=== PATIENT | female | born 1950 | race Caucasian/White ===

== ENCOUNTER 2018-08-16 19:19 | Emergency (ER) | payer MEDICARE, OTHER ==
--- NOTE | 2018-08-16 21:28 | ER Document Report ---
ED Medical Screen (RME) - General Chief Complaint: Foot Pain Stated Complaint: FOOT PAIN Time Seen by Provider: 08/16/18 21:24 Primary Care Provider: AMA GARVEY MD [Primary Care Provider] - Follow up as needed Mode of Arrival: Ambulatory Information source: Patient Notes: 68-year-old female presented to ED for complaint of pain in her left foot times a week swelling started this weekend redness started yesterday and now she has all 3 were discontinued. She states she has a history of high blood pressure and anxiety and cosmetic surgeries no other medical history. Patient is alert oriented respirations regular and unlabored speaking in full sentences walks with a even steady gait. She does have palpable pedal pulses to both feet with mild erythema and edema and tenderness to the top of the left foot. Patient does speak in full sentences. She states she drinks wine about daily does not smoke does does not use recreational drugs. I have greeted and performed a rapid initial assessment of this patient. A comprehensive ED assessment and evaluation of the patient, analysis of test results and completion of medical decision making process will be conducted by an additional ED providers. TRAVEL OUTSIDE OF THE [place] IN LAST 30 DAYS: No - Related Data Allergies/Adverse Reactions: No Known Drug Allergies Allergy (Verified 08/16/18 19:24) Past Medical History - Social History Chew tobacco use (# tins/day): No Frequency of alcohol use: Social - Past Medical History Cardiac Medical History: Reports: Hx Hypertension Renal/ Medical History: Denies: Hx Peritoneal Dialysis Physical Exam - Vital signs Vitals: Temp Pulse Resp BP Pulse Ox 98.7 F 85 20 147/93 H 100 08/16/18 19:45 08/16/18 19:45 08/16/18 19:45 08/16/18 19:45 08/16/18 19:45 Course - Vital Signs Vital signs: Temp Pulse Resp BP Pulse Ox 98.7 F 85 20 147/93 H 100 08/16/18 19:45 08/16/18 19:45 08/16/18 19:45 08/16/18 19:45 08/16/18 19:45 Doctor's Discharge - Discharge Referrals: AMA GARVEY MD [Primary Care Provider] - Follow up as needed
[2018-08-16 22:03] LABS: ABSOLUTE EOSINOPHILS # (AUTO) 0.1 10^3/uL (0.0-0.6); ABSOLUTE LYMPHOCYTES (AUTO) 1.5 10^3/uL (0.5-4.7); ABSOLUTE MONOCYTES (AUTO) 0.7 10^3/uL (0.1-1.4); ABSOLUTE NEUT (AUTO) 4.8 10^3/uL (1.7-8.2); BASOPHILS % (AUTO) 0.4 % (0-2); EOSINOPHILS % (AUTO) 1.3 % (0-6); HEMATOCRIT 38.3 % (36.0-47.0); HEMOGLOBIN 13.2 g/dL (12.0-15.5); LYMPHOCYTES % (AUTO) 20.4 % (13-45); MEAN CORPUSCULAR HEMOGLOBIN 31.5 pg (27.0-33.4); MEAN CORPUSCULAR HGB CONC 34.4 g/dL (32.0-36.0); MEAN CORPUSCULAR VOLUME 91 fl (80-97); MONOCYTES % (AUTO) 10.2 % (3-13); PLATELET COUNT 324 10^3/uL (150-450); RED BLOOD COUNT 4.19 10^6/uL (3.72-5.28); RED CELL DISTRIBUTION WIDTH 13.6 % (11.5-14.0); SEGMENTED NEUTROPHILS % (AUTO) 67.7 % (42-78); TOTAL CELLS COUNTED % (AUTO) 100 %; WHITE BLOOD COUNT 7.1 10^3/uL (4.0-10.5)
[2018-08-16 22:14] LABS: ALANINE AMINOTRANSFERASE 26 U/L (9-52); ALBUMIN 4.8 g/dL (3.5-5.0); ALKALINE PHOSPHATASE 86 U/L (38-126); ANION GAP 11 (5-19); ASPARTATE AMINO TRANSFERASE 22 U/L (14-36); BILIRUBIN,DIRECT 0.1 mg/dL (0.0-0.4); BILIRUBIN,TOTAL 0.6 mg/dL (0.2-1.3); BLOOD UREA NITROGEN 17 mg/dL (7-20); CALCIUM 9.8 mg/dL (8.4-10.2); CARBON DIOXIDE 28 mmol/L (22-30); CHLORIDE 101 mmol/L (98-107); GLUCOSE 112 mg/dL (75-110); POTASSIUM 3.8 mmol/L (3.6-5.0); URIC ACID 4.6 mg/dL (2.5-7.5)
--- NOTE | 2018-08-16 22:19 | RADIOLOGY REPORT (SQ) ---
3 VIEWS OF THE LEFT LOWER HISTORY: Joint pain. COMPARISON: None. FINDINGS: There is a nondisplaced fracture of the third metatarsal. No dislocation is seen. Mild soft tissue swelling is present. There are severe degenerative changes of the first and second MTP joints with remodeling, osteophytosis, and joint space loss. Remaining joint spaces are preserved. IMPRESSION: 1. Mildly displaced fracture of the third metatarsal. 2. Marked degenerative changes of the first and second MTP joints.
[2018-08-17] MEDS ORDERED: HYDROCODONE/ACETAMINOPHEN 5-325 MG (6 TAB/ER DISP) PO PRN (03:37)
--- NOTE | 2018-08-17 03:43 | ER Document Report ---
ED Extremity Problem, Lower - General Chief Complaint: Foot Pain Stated Complaint: FOOT PAIN Time Seen by Provider: 08/16/18 21:24 Primary Care Provider: AMA GARVEY MD [NO LOCAL MD] - Follow up as needed Mode of Arrival: Ambulatory Notes: 68-year-old female to emergency department for evaluation of left foot pain. Denies any trauma. Does not know what has noticed that her left foot is extremely painful, swollen and red. No fever, chills, sweats. No shortness of breath. No calf pain. Patient does have osteoporosis and arthritis. TRAVEL OUTSIDE OF THE [place] IN LAST 30 DAYS: No - HPI Patient complains to provider of: Pain, Swelling Location: Foot Occurred: Last week Where: Home - Related Data Allergies/Adverse Reactions: No Known Drug Allergies Allergy (Verified 08/16/18 19:24) Past Medical History - General Information source: Patient - Social History Smoking Status: Never Smoker Chew tobacco use (# tins/day): No Frequency of alcohol use: Social Drug Abuse: None Lives with: Family Family History: Reviewed & Not Pertinent Patient has suicidal ideation: No Patient has homicidal ideation: No - Past Medical History Cardiac Medical History: Reports: Hx Hypertension Renal/ Medical History: Denies: Hx Peritoneal Dialysis Review of Systems - Review of Systems Constitutional: denies: Fever, Malaise, Weakness EENT: denies: Difficulty swallowing, Throat swelling Cardiovascular: denies: Chest pain, Palpitations, Heart racing Respiratory: denies: Cough, Hurts to breathe, Short of breath, Wheezing Musculoskeletal: See HPI, Other - Foot pain, foot swelling, redness Skin: Other - Redness to the left foot. denies: Dryness, Lumps, Rash Hematologic/Lymphatic: denies: Anemia, Blood clots, Easy bleeding, Easy bruising Physical Exam - Vital signs Vitals: Temp Pulse Resp BP Pulse Ox 98.7 F 85 20 147/93 H 100 08/16/18 19:45 08/16/18 19:45 08/16/18 19:45 08/16/18 19:45 08/16/18 19:45 Interpretation: Normal - General General appearance: Appears well, Alert - Respiratory Respiratory status: No respiratory distress Chest status: Nontender Breath sounds: Normal Chest palpation: Normal - Cardiovascular Rhythm: Regular Heart sounds: Normal auscultation Murmur: No - Extremities General upper extremity: Normal inspection, Normal ROM General lower extremity: Other - Pulses present in the left lower extremity. There is significant amount of edema in erythema. There is no lymphangitic streaking. There is no significant warmth. There is tenderness to the top and bottom of the foot. Sensation is intact - Skin Skin Temperature: Warm Skin Moisture: Dry Skin Color: Erythema Course - Re-evaluation Re-evalutation: 08/17/18 03:44 Laboratory 08/16/18 08/16/18 21:50 21:50 WBC 7.1 RBC 4.19 Hgb 13.2 Hct 38.3 MCV 91 MCH 31.5 MCHC 34.4 RDW 13.6 Plt Count 324 Seg Neutrophils % 67.7 Lymphocytes % 20.4 Monocytes % 10.2 Eosinophils % 1.3 Basophils % 0.4 Absolute Neutrophils 4.8 Absolute Lymphocytes 1.5 Absolute Monocytes 0.7 Absolute Eosinophils 0.1 Absolute Basophils 0.0 Sodium 140.0 Potassium 3.8 Chloride 101 Carbon Dioxide 28 Anion Gap 11 BUN 17 Creatinine 0.60 Est GFR ( Amer) > 60 Est GFR (Non-Af Amer) > 60 Glucose 112 H Uric Acid 4.6 Calcium 9.8 Total Bilirubin 0.6 Direct Bilirubin 0.1 Neonat Total Bilirubin Not Reportable Neonat Direct Bilirubin Not Reportable Neonat Indirect Bili Not Reportable AST 22 ALT 26 Alkaline Phosphatase 86 Total Protein 8.0 Albumin 4.8 Foot X-Ray 08/16/18 21:25 IMPRESSION: 1. Mildly displaced fracture of the third metatarsal. 2. Marked degenerative changes of the first and second MTP joints. 08/17/18 03:44 Patient has a fracture noted at the third metatarsal. Marked degenerative changes at the first and second MPT joint. At this time, I will place in a postop shoe. Recommend follow-up with her orthopedist. We will give her some pain medication. Labs look normal. No signs of infection. Afebrile. Will DC at this time. - Vital Signs Vital signs: Temp Pulse Resp BP Pulse Ox 98.7 F 85 20 147/93 H 100 08/16/18 19:45 08/16/18 19:45 08/16/18 19:45 08/16/18 19:45 08/16/18 19:45 - Laboratory Result Diagrams: 08/16/18 21:50 08/16/18 21:50 Laboratory results interpreted by me: 08/16/18 21:50 Glucose 112 H Discharge - Discharge Clinical Impression: Fracture of third metatarsal bone Qualifiers: Encounter type: initial encounter Fracture type: closed Fracture alignment: displaced Laterality: left Qualified Code(s): S92.332A - Displaced fracture of third metatarsal bone, left foot, initial encounter for closed fracture Condition: Good Disposition: HOME, SELF-CARE Instructions: Foot Fracture ([facility]) Additional Instructions: Please follow-up with your orthopedic surgeon as soon as possible. There is no evidence today that there is an infection. You will need to be seen by orthopedic surgeon. Return for any worsening symptoms or concerns. Avoid weightbearing if possible. Referrals: AMA GARVEY MD [NO LOCAL MD] - Follow up as needed
[2018-08-17 04:09] VITALS: BP 147/90
== END 2018-08-17 04:23 | disposition home or self-care (01) ==
LOC: ER 19:19
DX: M80.072A Age-related osteoporosis with current pathological fracture, left ankle and foot, initial encounter for fracture (principal); I10 Essential (primary) hypertension
CPT/HCPCS: 99283; 36415; 84550; 85025; 80053; 73630; A9270

== ENCOUNTER 2019-10-10 11:39 | Emergency (ER) | payer MEDICARE, OTHER ==
[2019-10-10] MEDS ORDERED: ONDANSETRON HCL INJ/PF 4 MG/2 ML SDV IV ONE ×2 (12:08→16:36)
[2019-10-10] MEDS ORDERED: ETOMIDATE INJ/PF 20 MG/10 ML SDV IV ONE ×2 (12:23→16:37)
--- NOTE | 2019-10-10 12:23 | RADIOLOGY REPORT (SQ) ---
EXAM DESCRIPTION: HIP RIGHT AP/LATERAL COMPLETED DATE/TIME: 10/10/2019 12:02 pm REASON FOR STUDY: bed 1 s/p fall with shortening of right leg COMPARISON: None. NUMBER OF VIEWS: Two views. TECHNIQUE: AP pelvis and additional frog-leg view of the right hip. LIMITATIONS: None. FINDINGS: Superior dislocation of right hip total hip arthroplasty. Pelvis is intact. IMPRESSION: Dislocated right hip prosthesis. TECHNICAL DOCUMENTATION: JOB ID: [id number] 2010 [employer]- All Rights Reserved Reading location - IP/workstation name: [email or web address]
--- NOTE | 2019-10-10 12:32 | ER Document Report ---
ED General - General Chief Complaint: Fall Injury Stated Complaint: HIP PAIN Time Seen by Provider: 10/10/19 11:42 Primary Care Provider: MAXIMILIANO DIAZ MD [Primary Care Provider] - Follow up as needed TRAVEL OUTSIDE OF THE [place] IN LAST 30 DAYS: No - HPI Notes: Chief complaint: Right hip injury 69-year-old female who lives alone fell and injured her right hip when getting up to the bathroom around 4 AM this morning. Patient says that she takes medication which sometimes makes her groggy and causes her gait to be unsteady at night. She denies any loss of consciousness or injury to head or neck. Since the injury that the patient has not been able to bear weight on the hip and continues to complain of severe pain. She initially could not get to a telephone but ultimately crawled across the floor and called EMS after being on the floor for period of approximately 6 hours. She notes some abrasions of her left upper extremity and denies any other injuries aside from her obvious hip pain. During transport here via EMS she received 100 mcg of fentanyl IV. Her pain remains at a level of 6/10 localized to the right hip area. Patient previously underwent total hip replacement by Dr. Gorge Gr in [facility] in 2018. She denies any prior history of dislocation of the prosthesis. - Related Data Allergies/Adverse Reactions: No Known Drug Allergies Allergy (Verified 08/16/18 19:24) Past Medical History - General Information source: Patient - Social History Smoking Status: Unknown if Ever Smoked Family History: Reviewed & Not Pertinent Patient has suicidal ideation: No Patient has homicidal ideation: No - Past Medical History Cardiac Medical History: Reports: Hx Hypertension Renal/ Medical History: Denies: Hx Peritoneal Dialysis Psychiatric Medical History: Reports: Hx Depression Past Surgical History: Reports: Hx Orthopedic Surgery - R knee, left foot Review of Systems - Review of Systems Notes: Constitutional: Negative for fever. HENT: Negative for sore throat. Eyes: Negative for visual changes. Cardiovascular: Negative for chest pain. Respiratory: Negative for shortness of breath. Gastrointestinal: Negative for abdominal pain, vomiting or diarrhea. Genitourinary: Negative for dysuria. Musculoskeletal: As per HPI. Skin: Negative for rash. Neurological: Negative for headaches, weakness or numbness. 10 point ROS negative except as marked above and in HPI. Physical Exam - Vital signs Vitals: Resp Pulse Ox 10 L 97 10/10/19 11:45 10/10/19 11:45 - Notes Notes: GENERAL: Slender female patient of approximately stated age who appears moderately uncomfortable. SKIN: Good turgor no rashes. HEAD: Normocephalic atraumatic. EYES: PERRLA. EOMI. Conjunctivae and sclerae clear. EARS: CANALS AND TMS CLEAR. NOSE: CLEAR. MOUTH: Moist mucosa. Good dentition. No stridor or edema. No drooling. NECK: Supple. No masses or thyromegaly. No adenopathy. Carotids 2+ without bruits. No JVD. BACK: Symmetrical without tenderness. CHEST: Respirations unlabored. Breath sounds clear and symmetrical. HEART: Regular rhythm. No murmur gallop or rub. ABDOMEN: Soft nontender without masses, organomegaly or rebound. Bowel sounds normally active. No bruits. GENITALIA: Deferred. EXTREMITIES: Right lower extremity appears to be shortened and internally rotated. Patient is exquisitely tender over lateral aspect of right hip joint. Distal sensation, pulses, capillary refill and motor function intact. NEUROLOGICAL: GCS 15. Alert and oriented x3. Fluent speech. Cranial nerves II through XII intact. Sensorimotor and cerebellar normal. Normal tone. PSYCHIATRIC: Appropriate affect. Course - Re-evaluation Re-evalutation: 10/10/19 17:17 Initial attempt reduction of the dislocation by me shortly at presentation was unsuccessful. Case was discussed with on-call orthopedist Dr. Ray. We subsequently re-sedated this lady with etomidate and with great difficulty he was able to get the joint reduced. We have placed her in a knee immobilizer and will get her crutches and discharge her for follow-up within the next [address] Gr as an outpatient. - Vital Signs Vital signs: Temp Pulse Resp BP Pulse Ox 98.6 F 99 16 131/70 H 100 10/10/19 11:49 10/10/19 17:02 10/10/19 17:02 10/10/19 17:02 10/10/19 17:02 - Laboratory Result Diagrams: 10/10/19 13:55 10/10/19 13:55 Laboratory results interpreted by me: 10/10/19 10/10/19 13:55 13:55 Seg Neuts % (Manual) 93 H Lymphocytes % (Manual) 4 L Monocytes % (Manual) 2 L Abs Neuts (Manual) 9.8 H Sodium 134.7 L Creatinine 0.44 L Glucose 119 H Creatine Kinase 416 H Procedures - Joint Reduction/Fracture Care Right Hip Time completed: 13:00 Consent obtained: Yes Conscious sedation: Yes Pre-procedure NV exam: Yes Manipulation comment: Traction countertraction with 90 degree flexion hip and knee Post-procedure NV exam: Yes Post-reduction x-ray: Joint not reduced, No fracture seen Reduction attempts: 3 Complications: No Notes: 10/10/19 13:13 Case discussed with on-call orthopedist Dr. Karthik Ray who will evaluate patient in emergency department and make another attempt at reduction. Discharge - Discharge Clinical Impression: Dislocation of hip joint prosthesis Qualifiers: Encounter type: initial encounter Qualified Code(s): T84.029A - Dislocation of unspecified internal joint prosthesis, initial encounter; Z96.649 - Presence of unspecified artificial hip joint Condition: Stable Disposition: HOME, SELF-CARE Additional Instructions: Contact your orthopedist tomorrow for follow-up within the next 24 hours as an outpatient. Continue with use of knee immobilizer and crutches as instructed. Take prescribed pain medication as needed. Prescriptions: Oxycodone HCl/Acetaminophen [Oxycodon-Acetaminophen 2.5-300] 1 each PO Q6 5 Days #20 tablet Referrals: MAXIMILIANO DIAZ MD [Primary Care Provider] - Follow up as needed
[2019-10-10] MEDS: FENTANYL CITRATE INJ/PF 100 MCG/2 ML AMPUL IV PRN ×2 (12:44→16:09)
--- NOTE | 2019-10-10 13:35 | RADIOLOGY REPORT (SQ) ---
EXAM DESCRIPTION: PELVIS AP COMPLETED DATE/TIME: 10/10/2019 1:19 pm REASON FOR STUDY: Right hip dislocation COMPARISON: None. NUMBER OF VIEWS: One view TECHNIQUE: AP Pelvis LIMITATIONS: None. FINDINGS: MINERALIZATION: Normal. HIPS: Right hip arthroplasty with dislocation. The acetabular cup appears to be somewhat vertically- oriented. PELVIS AND SACRUM: No acute fracture or dislocation. No worrisome bone lesions. PUBIS AND ISCHIUM: No acute fracture. LOWER LUMBAR SPINE: No significant findings as visualized. SOFT TISSUES: No findings. OTHER: No other significant finding. IMPRESSION: Dislocation of the right hip. COMMENT: Pelvic fractures are often occult on plain radiographs. If strong clinical suspicion for f racture, recommend CT or MR. TECHNICAL DOCUMENTATION: JOB ID: [id number] 2010 [employer]- All Rights Reserved Reading location - IP/workstation name: [email or web address]
[2019-10-10 14:11] LABS: HEMOGLOBIN 12.9 g/dL (12.0-15.5); MEAN CORPUSCULAR HEMOGLOBIN 33.1 pg (27.0-33.4); MEAN CORPUSCULAR HGB CONC 35.8 g/dL (32.0-36.0); MEAN CORPUSCULAR VOLUME 92 fl (80-97); PLATELET COUNT 247 10^3/uL (150-450); RED CELL DISTRIBUTION WIDTH 13.3 % (11.5-14.0); WHITE BLOOD COUNT 10.5 10^3/uL (4.0-10.5)
[2019-10-10 14:27] LABS: ALBUMIN 4.2 g/dL (3.5-5.0); ALKALINE PHOSPHATASE 78 U/L (38-126); ANION GAP 11 (5-19); ASPARTATE AMINO TRANSFERASE 36 U/L (14-36); BILIRUBIN,DIRECT 0.2 mg/dL (0.0-0.4); BILIRUBIN,TOTAL 0.9 mg/dL (0.2-1.3); BLOOD UREA NITROGEN 18 mg/dL (7-20); CALCIUM 9.4 mg/dL (8.4-10.2); CARBON DIOXIDE 24 mmol/L (22-30); CHLORIDE 100 mmol/L (98-107); CREATINE KINASE 416 U/L (30-135); GLUCOSE 119 mg/dL (75-110); POTASSIUM 4.2 mmol/L (3.6-5.0); TOTAL PROTEIN 7.6 g/dL (6.3-8.2)
[2019-10-10 14:40] LABS: ABSOLUTE LYMPHOCYTES# (MANUAL) 0.5 10^3/uL (0.5-4.7); ABSOLUTE MONOCYTES # (MANUAL) 0.2 10^3/uL (0.1-1.4); BASOPHILS % (MANUAL) 0 % (0-2); EOSINOPHILS % (MANUAL) 0 % (0-6); LYMPHOCYTES % (MANUAL) 4 % (13-45); MONOCYTES % (MANUAL) 2 % (3-13); SEGMENTED NEUTROPHILS % (MAN) 93 % (42-78); TOTAL CELLS COUNTED 100
[2019-10-10 14:41] LABS: ANISOCYTOSIS SLIGHT; TOXIC VACUOLATION PRESENT
[2019-10-10 14:42] LABS: PLATELET COMMENT ADEQUATE
--- NOTE | 2019-10-10 15:21 | EKG REPORT ---
SEVERITY:- NORMAL ECG - SINUS RHYTHM : Confirmed by: Brian Zaragoza MD 10-Oct-2019 15:20:31
[2019-10-10] MEDS ORDERED: NORMAL SALINE 1000 ML 1,000 ML IV ONE (15:56)
[2019-10-10 17:07] VITALS: BP 131/70
--- NOTE | 2019-10-10 17:07 | PDOC CONSULTATION ---
Consultation Consult Date: 10/10/19 Provider Consulted: GINO ROSS JR History of Present Illness Admission Date/PCP: MAXIMILIANO DIAZ MD History of Present Illness: DAYSI JOSEPH is a 69 year old female who presents to the emergency department after having a posterior hip dislocation. She reports that last night she was tired and stumbled falling and resulting in hip pain and inability to move the right hip, inability to turn to her feet. Pain is currently 6 out of 10 with any range of motion, aching, severe sharp, improved with rest worse with motion. She denies any prior dislocation or subluxation event. She reports that prior to this fall she felt great and had no problems in regards to her right hip. The emergency department sedated the patient attempted multiple times to reduce but was unsuccessful. She denies associated injury, denies loss of consciousness, eyes headache or head injury, denies right lower extremity paresthesia. Past Medical History Cardiac Medical History: Reports: Hypertension Psychiatric Medical History: Reports: Depression Past Surgical History Past Surgical History: Reports: Orthopedic Surgery - R knee, left foot Social History Smoking Status: Unknown if Ever Smoked Family History Family History: Reviewed & Not Pertinent Parental Family History Reviewed: No Children Family History Reviewed: NA Sibling(s) Family History Reviewed.: NA Medication/Allergy Home Medications: Hydrocodone/Acetaminophen [[place] 5-325 mg Tablet] 1 tab PO TID PRN 4 Days #12 tablet 08/17/18 Allergies/Adverse Reactions: No Known Drug Allergies Allergy (Verified 08/16/18 19:24) Review of Systems Review of Systems: Constitutional: ABSENT: anorexia, chills, night sweats Cardiovascular: ABSENT: chest pain Respiratory: ABSENT: dyspnea Gastrointestinal: ABSENT: vomiting Genitourinary: ABSENT: dysuria Integumentary: ABSENT: rash Neurological: ABSENT: confusion, memory loss, numbness Psychiatric: ABSENT: hallucinations Hematologic/Lymphatic: ABSENT: easy bleeding All negative as above aside from that reported in the HPI Physical Exam Vital Signs: Temp Pulse Resp BP Pulse Ox 98.6 F 98 11 L 134/78 H 100 10/10/19 11:49 10/10/19 13:24 10/10/19 15:31 10/10/19 15:31 10/10/19 15:31 Intake & Output 10/09/19 10/10/19 10/11/19 06:59 06:59 06:59 Weight 61.3 kg Physical Exam: General appearance: PRESENT: no acute distress, cooperative, well-nourished Head exam: PRESENT: atraumatic, normocephalic Eye exam: PRESENT: EOMI Ear exam: PRESENT: normal external ear exam Mouth exam: PRESENT: neck supple Neck exam: ABSENT: tracheal deviation Respiratory exam: PRESENT: symmetrical, unlabored. ABSENT: accessory muscle use, wheezes Pulses: PRESENT: normal radial pulses, normal dorsalis pedis pulse Vascular exam: PRESENT: normal capillary refill GI/Abdominal exam: ABSENT: distended, firm Extremities exam: PRESENT: full ROM of bilateral shoulders, elbows wrists, knees, hips and ankles without pain Musculoskeletal exam: PRESENT: full ROM, normal inspection of all 4 extremities aside from that noted below. Neurological exam: PRESENT: alert, awake, oriented to person, oriented to place, oriented to time Psychiatric exam: PRESENT: appropriate affect. ABSENT: agitated Focused psych exam: ABSENT: catatonic Skin exam: PRESENT: intact. ABSENT: dry All as above aside from that noted in the HPI and the following: Right lower extremity -Pulses 2+ distally -Compartments soft -Sensation grossly intact to L3-4-5 S1 -Motor grossly intact to EHL TA gastroc and quad - Able to perform quad extension and elevate heel off of bed. -Pre-reduction exam demonstrates an internally rotated and shortened right lower extremity Results Laboratory Results: 10/10/19 13:55 10/10/19 13:55 10/10/19 10/10/19 13:55 13:55 WBC 10.5 RBC 3.90 Hgb 12.9 Hct 36.0 MCV 92 MCH 33.1 MCHC 35.8 RDW 13.3 Plt Count 247 Seg Neutrophils % Not Reportable Sodium 134.7 L Potassium 4.2 Chloride 100 Carbon Dioxide 24 Anion Gap 11 BUN 18 Creatinine 0.44 L Est GFR ( Amer) > 60 Glucose 119 H Calcium 9.4 Total Bilirubin 0.9 AST 36 Alkaline Phosphatase 78 Total Protein 7.6 Albumin 4.2 10/10/19 13:55 Creatine Kinase 416 H Impressions: Hip/Pelvis X-Ray 10/10/19 00:00 IMPRESSION: Dislocated right hip prosthesis. Pelvis X-Ray 10/10/19 13:08 IMPRESSION: Dislocation of the right hip. Assessment & Plan - Diagnosis (1) Dislocation of internal right hip prosthesis, initial encounter Is this a current diagnosis for this admission?: Yes Plan: The patient sustained a dislocation of her right prosthetic hip. Attempts from the emergency department were unsuccessful. They contacted me for further evaluation guidance. PROCEDURE NOTE: After discussing risks and benefits, potential consequences and other alternatives with the patient and answering all of her questions the patient provided verbal informed procedural consent for closed reduction under s edation. The patient was given etomidate for sedation and after adequate sedation was achieved a reduction maneuver was performed on her right hip. A palpable clunk was appreciated and her leg lengths were then equal. X-ray was performed that demonstrated achieved reduction. Patient was awakened from anesthesia and was found to remain neurovascularly intact. -She will be placed in a knee immobilizer until seen in the office. I have encouraged her to follow-up with Dr. Gr as soon as she reasonably can. Is to be on posterior hip precautions until that time -She is weightbearing as tolerated in the knee immobilizer -She has any other acute events she can see me in the [place] office
--- NOTE | 2019-10-10 17:25 | RADIOLOGY REPORT (SQ) ---
EXAM DESCRIPTION: PELVIS AP COMPLETED DATE/TIME: 10/10/2019 5:08 pm REASON FOR STUDY: Post Reduction COMPARISON: None. NUMBER OF VIEWS: One view TECHNIQUE: AP Pelvis LIMITATIONS: None. FINDINGS: Postreduction image shows that the right hip dislocation has been reduced. IMPRESSION: Successful reduction. COMMENT: Pelvic fractures are often occult on plain radiographs. If strong clinical suspicion for f racture, recommend CT or MR. TECHNICAL DOCUMENTATION: JOB ID: [id number] 2010 [employer]- All Rights Reserved Reading location - IP/workstation name: [email or web address]
== END 2019-10-10 17:43 | disposition home or self-care (01) ==
LOC: ER 11:39
DX: T84.020A Dislocation of internal right hip prosthesis, initial encounter (principal); W01.198A Fall on same level from slipping, tripping and stumbling with subsequent striking against other object, initial encounter; Y93.89 Activity, other specified; I10 Essential (primary) hypertension
CPT/HCPCS: 93005; 96376; 99285; 99151; 96374; 36415; 82550; 85025; 80053; 73502; 72170; 93010; 27265; J3010; J2405; J7030; J3490

== ENCOUNTER 2019-11-13 19:39 | Day surgery (SDC) | payer MEDICARE, OTHER ==
[2019-11-13] MEDS ORDERED: FENTANYL CITRATE INJ/PF 100 MCG/2 ML AMPUL IV ONE (20:11)
[2019-11-13] MEDS ORDERED: METOCLOPRAMIDE HCL INJ/PF 10 MG/2 ML SDV IV ONE (20:11)
--- NOTE | 2019-11-13 20:21 | RADIOLOGY REPORT (SQ) ---
EXAM DESCRIPTION: XR HIP 2 OR MORE VIEWS COMPLETED DATE/TME: 11/13/2019 00:00 CLINICAL HISTORY: 69 years Female shortening of right leg COMPARISON: 10/10/2019. TECHNIQUE: RIGHT hip, two views FINDINGS: Prosthetic hip on the right. There is dislocation of the femoral component with anterior and superolateral displacement, similar to the patient's previous study. IMPRESSION: Dislocation of the right hip prosthesis
--- NOTE | 2019-11-13 20:43 | ER Document Report ---
ED General - General Chief Complaint: Hip Pain Stated Complaint: HIP INJURY Time Seen by Provider: 11/13/19 19:57 Primary Care Provider: MAXIMILIANO DIAZ MD [Primary Care Provider] - Follow up as needed TRAVEL OUTSIDE OF THE [place] IN LAST 30 DAYS: No - HPI Notes: Chief complaint: Right hip dislocation HPI: 69-year-old female well-known to me from prior emergency department visit here 1 month ago when she dislocated her prosthetic right hip. Reduction with procedural sedation was attempted unsuccessfully at that time. Patient was subsequently seen by Dr. Ray from orthopedics and he also had a great deal difficulty reducing his joint but was able to achieve reduction and the patient was discharged home for outpatient follow-up. She states that she is tried to be very careful with the joint since that time but tonight if she was bending over to pickling grader dishes in her kitchen she suddenly felt a pop and realize she had redislocated the joint. EMS was called. They administered fentanyl in route. She is still in moderate discomfort. Unfortunately the patient had eaten a full meal just before dislocating the joint tonight. - Related Data Allergies/Adverse Reactions: No Known Drug Allergies Allergy (Verified 08/16/18 19:24) Penicillins Allergy (Verified 11/13/19 20:02) Sulfa (Sulfonamide Antibiotics) Allergy (Verified 11/13/19 20:02) Home Medications: Hydrochlorothiszide. Losartan. Zolpidem. Alpracolam. Prevacid Past Medical History - General Information source: Patient, [facility] Records - Social History Smoking Status: Never Smoker Frequency of alcohol use: Occasional Drug Abuse: None Family History: Reviewed & Not Pertinent Patient has suicidal ideation: No Patient has homicidal ideation: No - Past Medical History Cardiac Medical History: Reports: Hx Hypertension Renal/ Medical History: Denies: Hx Peritoneal Dialysis Psychiatric Medical History: Reports: Hx Depression Past Surgical History: Reports: Hx Orthopedic Surgery - R knee, left foot Review of Systems - Review of Systems Notes: Constitutional: Negative for fever. HENT: Negative for sore throat. Eyes: Negative for visual changes. Cardiovascular: Negative for chest pain. Respiratory: Negative for shortness of breath. Gastrointestinal: Negative for abdominal pain, vomiting or diarrhea. Genitourinary: Negative for dysuria. Musculoskeletal: As per HPI. Skin: Negative for rash. Neurological: Negative for headaches, weakness or numbness. 10 point ROS negative except as marked above and in HPI. Physical Exam - Vital signs Vitals: Temp Pulse Resp BP Pulse Ox 98.5 F 129 H 20 161/82 H 100 11/13/19 19:40 11/13/19 19:40 11/13/19 19:40 11/13/19 19:40 11/13/19 19:40 - Notes Notes: GENERAL: Well-developed well-nourished female appearing approximately stated age in moderate discomfort. SKIN: Good turgor no rashes. HEAD: Normocephalic atraumatic. EYES: PERRLA. EOMI. Conjunctivae and sclerae clear. EARS: CANALS AND TMS CLEAR. NOSE: CLEAR. MOUTH: Moist mucosa. Good dentition. No stridor or edema. No drooling. NECK: Supple. No masses or thyromegaly. No adenopathy. Carotids 2+ without bruits. No JVD. BACK: Symmetrical without tenderness. CHEST: Respirations unlabored. Breath sounds clear and symmetrical. HEART: Regular rhythm. No murmur gallop or rub. ABDOMEN: Soft nontender without masses, organomegaly or rebound. Bowel sounds n ormally active. No bruits. GENITALIA: Deferred. EXTREMITIES: Right lower extremity appears shortened and externally rotated. Patient is tender over the hip joint. No edema. No calf tenderness. Cap refill less than 1.5 seconds. Dorsalis pedis and posterior tibial pulses 3+ and symmetrical. NEUROLOGICAL: GCS 15. Alert and oriented x3. Normal gait. Fluent speech. Cranial nerves II through XII intact. Sensorimotor and cerebellar normal. Normal tone. PSYCHIATRIC: Appropriate affect. Course - Re-evaluation Re-evalutation: 11/13/19 20:43 I have reviewed x-rays and they demonstrate anterior dislocation of the hip prosthesis. Because this lady has eaten so recently we cannot sedate her at the moment. I will contact on-call orthopedist, Dr. Manning, to outline further treatment strategy. We will keep her n.p.o. I have given her some additional fentanyl IV and some Reglan IV. 11/13/19 20:[address] Manning and he will admit the patient tonight. - Vital Signs Vital signs: Temp Pulse Resp BP Pulse Ox 98.5 F 129 H 20 161/82 H 98 11/13/19 19:40 11/13/19 19:40 11/13/19 19:40 11/13/19 19:40 11/13/19 20:00 Discharge - Discharge Clinical Impression: Dislocation of internal right hip prosthesis Qualifiers: Encounter type: initial encounter Qualified Code(s): T84.020A - Dislocation of internal right hip prosthesis, initial encounter Condition: Good Disposition: ADMITTED INPATIENT Unit Admitted: Surgical Floor Referrals: MAXIMILIANO DIAZ MD [Primary Care Provider] - Follow up as needed
[2019-11-13] MEDS ORDERED: NORMAL SALINE 1000 ML 1,000 ML IV ONE (20:48)
[2019-11-14] MEDS: MORPHINE SULFATE 10 MG/ML INJ IV PRN ×4 (00:58→08:33)
[2019-11-14] MEDS: ONDANSETRON 4 MG TAB.RAPDIS PO PRN ×2 (00:58→13:36)
[2019-11-14] MEDS: RINGERS SOLUTION,LACTATED 1,000 ML IV PRN ×2 (01:19→12:03)
--- NOTE | 2019-11-14 07:13 | PDOC H&P ---
History of Present Illness Admission Date/PCP: 11/13/19 21:19 MAXIMILIANO DIAZ MD History of Present Illness: DAYSI JOSEPH is a 69 year old female Patient is 69-year-old white female status post right hip arthroplasty [facility] in 2018 for osteoarthritis. Patient did well until September 2019 when she fell in the kitchen and sustained a prosthetic dislocation. She had a closed reduction at that time and was placed in a knee immobilizer. She took the knee immobilizer off approximately a week ago and was in the kitchen again bent over to roll picker something and sustained a current prosthetic dislocation. She presented to the emergency room is admitted to orthopedic service for management of the hip arthroplasty. Past Medical History Cardiac Medical History: Reports: Hypertension Psychiatric Medical History: Reports: Depression Past Surgical History Past Surgical History: Reports: Orthopedic Surgery - R knee, left foot, right hip arthroplasty 2018, closed reduction prosthetic Social History Information Source: Patient, [facility] Records Smoking Status: Never Smoker Electronic Cigarette use?: No Family History Family History: Reviewed & Not Pertinent Parental Family History Reviewed: No Children Family History Reviewed: No Sibling(s) Family History Reviewed.: No Medication/Allergy Home Medications: Hydrocodone/Acetaminophen [[place] 5-325 mg Tablet] 1 tab PO TID PRN 4 Days #12 tablet 08/17/18 Oxycodone HCl/Acetaminophen [Oxycodon-Acetaminophen 2.5-300] 1 each PO Q6 5 Days #20 tablet 10/10/19 Allergies/Adverse Reactions: No Known Drug Allergies Allergy (Verified 08/16/18 19:24) Penicillins Allergy (Verified 11/13/19 20:02) Sulfa (Sulfonamide Antibiotics) Allergy (Verified 11/13/19 20:02) Review of Systems All systems: as per H Physical Exam Vital Signs: Temp Pulse Resp BP Pulse Ox 36.9 C 93 18 132/68 H 98 11/14/19 00:23 11/14/19 00:23 11/14/19 00:23 11/14/19 00:23 11/14/19 00:23 Intake & Output 11/13/19 11/14/19 11/15/19 06:59 06:59 06:59 Intake Total 1100 Balance 1100 Weight 61.8 kg Physical Exam: Patient is an alert middle-aged white female lying in hospital bed. She is not in undue distress. She is alert, oriented, and appropriate. General appearance: PRESENT: no acute distress, mild distress Head exam: PRESENT: normocephalic Respiratory exam: PRESENT: unlabored Cardiovascular exam: PRESENT: RRR Pulses: PRESENT: +1 pedal pulses bilateral Vascular exam: PRESENT: normal capillary refill GI/Abdominal exam: PRESENT: soft Rectal exam: PRESENT: deferred Extremities exam: PRESENT: other - Right lower extremity is externally rotated and shortened. Distal neurovascular examination is intact. Neurological exam: PRESENT: alert, awake, oriented to person, oriented to place, oriented to time, oriented to situation. ABSENT: motor sensory deficit Psychiatric exam: PRESENT: appropriate affect, normal mood. ABSENT: homicidal ideation, suicidal ideation Results Impressions: Hip/Pelvis X-Ray 11/13/19 00:00 IMPRESSION: Dislocation of the right hip prosthesis Status: Imported from PACS Assessment & Plan - Diagnosis (1) Dislocation of internal right hip prosthesis Qualifiers: Encounter type: initial encounter Qualified Code(s): T84.020A - Dislocation of internal right hip prosthesis, initial encounter Is this a current diagnosis for this admission?: Yes Plan: Closed reduction under sedation - Time Time Spent: 50 to 70 Minutes Anticipated discharge: Home Within: within 24 hours
[2019-11-14] MEDS ORDERED: DEXTROSE 40% GEL 15 GM TUBE PO PRN ×2 (07:46)
[2019-11-14] MEDS ORDERED: DEXTROSE 50%-WATER 25 GM/50 ML DISP.SYRIN IV PRN ×2 (07:46)
[2019-11-14] MEDS ORDERED: GLUCAGON,HUMAN RECOMB 1 MG INJ SUBCUT PRN (07:46)
[2019-11-14] MEDS ORDERED: LIDOCAINE 2% INJ-PF (20 MG/ML) 2 ML AMPUL ONE (10:01)
[2019-11-14] MEDS ORDERED: SUCCINYLCHOLINE CHLORIDE INJ 200 MG/10 ML VIAL ONE (10:01)
[2019-11-14] MEDS ORDERED: PROPOFOL INJ 200 MG/20 ML VIAL IV ONE (10:02)
--- NOTE | 2019-11-14 10:23 | Operative Report ---
Operative Report DATE OF SURGERY: 11/14/19 PREOPERATIVE DIAGNOSIS: Right prosthetic hip dislocation OPERATION: Closed reduction right hip dislocation SURGEON: JAMES JAY ANESTHESIA: Moderate Sedation PROCEDURE: With the patient on the operative table under moderate sedation controlled by anesthesia the right lower extremities manipulated under fluoroscopic guidance to effect an anatomic reduction of the hip. Once the hip is reduced stability is down under fluoroscopic guidance and it appears to me that the implant is impinging posteriorly and levering out. The patient is placed into a knee immobilizer return to the PACU in satisfactory condition.
--- NOTE | 2019-11-14 10:27 | PDOC DISCHARGE SUMMARY ---
Impression - Admit/DC Date/PCP Admission Date/Primary Care Provider: 11/13/19 21:19 MAXIMILIANO DIAZ MD Discharge Date: 11/14/19 - Discharge Diagnosis (1) Dislocation of internal right hip prosthesis Is this a current diagnosis for this admission?: Yes - Additional Information Resuscitation Status: Full Code Discharge Diet: As Tolerated, Regular Discharge Activity: Balance Activity w/Rest, No tub bath Referrals: MAXIMILIANO DIAZ MD [Primary Care Provider] - Follow up as needed Prescriptions: Oxycodone HCl/Acetaminophen [Percocet 5-325 mg Tablet] 1 tab PO Q6 PRN #25 tab PRN Reason: Home Medications: Alprazolam [Xanax 0.5 mg Tablet] 0.5 mg PO BID 11/14/19 Escitalopram Oxalate [Lexapro 10 mg Tablet] 20 mg PO DAILY 11/14/19 Hydrochlorothiazide [Hydrodiuril 25 mg Tablet] 25 mg PO DAILY 11/14/19 Losartan Potassium 100 mg PO DAILY 11/14/19 Omeprazole 20 mg PO Q6AM 11/14/19 Oxycodone HCl/Acetaminophen [Percocet 5-325 mg Tablet] 1 tab PO Q6 PRN #25 tab 11/14/19 Zolpidem Tartrate [Ambien] 10 mg PO QHS 11/14/19 History of Present Illiness History of Present Illness: 69-year-old white female status post right hip arthroplasty in 2018 now with recurrent right hip instability presents emergency room with a dislocated right prosthetic hip Hospital Course Hospital Course: Patient is admitted to the orthopedic service for management of dislocation. She is taken to the operating room the next day under sedation hip is reduced uneventfully. Physical Exam Vital Signs: Temp Pulse Resp BP Pulse Ox 36.8 C 87 16 141/78 H 98 11/14/19 08:00 11/14/19 08:00 11/14/19 08:00 11/14/19 08:00 11/14/19 08:00 Intake & Output 11/13/19 11/14/19 11/15/19 06:59 06:59 06:59 Intake Total 1100 Balance 1100 Weight 61.8 kg General appearance: PRESENT: no acute distress, mild distress Head exam: PRESENT: normocephalic Respiratory exam: PRESENT: unlabored Cardiovascular exam: PRESENT: RRR Pulses: PRESENT: +1 pedal pulses bilateral Vascular exam: PRESENT: normal capillary refill GI/Abdominal exam: PRESENT: soft Rectal exam: PRESENT: deferred Neurological exam: PRESENT: alert, awake, oriented to person, oriented to place, oriented to time, oriented to situation. ABSENT: motor sensory deficit Psychiatric exam: PRESENT: appropriate affect, normal mood. ABSENT: homicidal ideation, suicidal ideation Skin exam: PRESENT: dry, intact, warm. ABSENT: cyanosis, rash Results Impressions: Hip/Pelvis X-Ray 11/13/19 00:00 IMPRESSION: Dislocation of the right hip prosthesis Plan Plan of Treatment: Patient to be discharged home in a knee immobilizer and weightbearing as tolerated basis. Patient can follow-up with her primary orthopedic surgeon for further discussion of her instability. Stroke Is this a Stroke Patient?: No Stroke Pt being discharged on Anti-thrombolytic therapy?: Yes Acute Heart Failure - Is this a Heart Failure Patient?: No
[2019-11-14] MEDS ORDERED: FENTANYL CITRATE INJ/PF 100 MCG/2 ML AMPUL IV PRN ×3 (10:59)
[2019-11-14] MEDS ORDERED: PROMETHAZINE HCL INJ 25 MG/1 ML VIAL IV PRN ×2 (10:59)
[2019-11-14] MEDS ORDERED: DIPHENHYDRAMINE HCL 50 MG/ML VIAL IV PRN (10:59)
[2019-11-14] MEDS ORDERED: MEPERIDINE HCL/PF INJ 25 MG/1 ML DISP.SYRIN IV PRN (10:59)
[2019-11-14] MEDS ORDERED: MORPHINE SULFATE 10 MG/ML INJ IV PRN (10:59)
[2019-11-14] MEDS ORDERED: OXYCODONE-ACETAMINOPHEN 5-325 MG TABLET PO PRN ×3 (10:59→12:11)
[2019-11-14 13:23] VITALS: BP 142/85
--- NOTE | 2019-11-14 14:02 | RADIOLOGY REPORT (SQ) ---
EXAM DESCRIPTION: NO CHG FLUORO; PELVIS AP IMAGES COMPLETED DATE/TIME: 11/14/2019 1:01 pm REASON FOR STUDY: CLOSED REDUCTION RIGHT HIP ASSISTED WITH FLUOROSCOPY IN OR COMPARISON: None. FLUOROSCOPY TIME: 1.2 minutes 2 images saved to PACS. TECHNIQUE: Intra-operative images acquired during surgical procedure to evaluate progress. NUMBER OF IMAGES: 2 LIMITATIONS: None. FINDINGS: Acetabular component of total hip arthroplasty expected location. IMPRESSION: IMAGE(S) OBTAINED DURING PROCEDURE. COMMENT: Quality ID [id number]: Final reports for procedures using fluoroscopy that document radiation exp osure indices, or exposure time and number of fluorographic images (if radiation exposure indices are not available) Please consult full operative report of the attending physician for description of the procedure. TECHNICAL DOCUMENTATION: JOB ID: [id number] 2010 [employer]- All Rights Reserved Reading location - IP/workstation name: [email or web address]
--- NOTE | 2019-11-14 14:02 | RADIOLOGY REPORT (SQ) ---
EXAM DESCRIPTION: NO CHG FLUORO; PELVIS AP IMAGES COMPLETED DATE/TIME: 11/14/2019 1:01 pm REASON FOR STUDY: CLOSED REDUCTION RIGHT HIP ASSISTED WITH FLUOROSCOPY IN OR COMPARISON: None. FLUOROSCOPY TIME: 1.2 minutes 2 images saved to PACS. TECHNIQUE: Intra-operative images acquired during surgical procedure to evaluate progress. NUMBER OF IMAGES: 2 LIMITATIONS: None. FINDINGS: Acetabular component of total hip arthroplasty expected location. IMPRESSION: IMAGE(S) OBTAINED DURING PROCEDURE. COMMENT: Quality ID [id number]: Final reports for procedures using fluoroscopy that document radiation exp osure indices, or exposure time and number of fluorographic images (if radiation exposure indices are not available) Please consult full operative report of the attending physician for description of the procedure. TECHNICAL DOCUMENTATION: JOB ID: [id number] 2010 [facility]- All Rights Reserved Reading location - IP/workstation name: [email or web address]
== END 2019-11-14 13:51 | disposition home or self-care (01) ==
LOC: ER 19:39 → OROUT 19:40 → UNDOADMIN 21:19 → EH 21:19 → 4N 22:45 → EH 22:45 → UNDODISIN 11-14 13:51 → OROUT 11-14 13:51
PROVIDERS: ATTEND Orthopaedic Surgery
DX: T84.020A Dislocation of internal right hip prosthesis, initial encounter (principal); X50.1XXA Overexertion from prolonged static or awkward postures, initial encounter; Y92.000 Kitchen of unspecified non-institutional (private) residence as the place of occurrence of the external cause; Y83.8 Other surgical procedures as the cause of abnormal reaction of the patient, or of later complication, without mention of misadventure at the time of the procedure; I10 Essential (primary) hypertension; F32.9 Major depressive disorder, single episode, unspecified; Z88.0 Allergy status to penicillin; Z88.2 Allergy status to sulfonamides; Z79.891 Long term (current) use of opiate analgesic; Z79.899 Other long term (current) drug therapy
CPT/HCPCS: 99285; 96374; 73502; 72170; 27266; L1830; A9270; J3010; J2765; J2270; J0330; J7030; J7120; J2704; J3490; S0119